=== PATIENT | female | born 2000 | race American Indian/Alaskan Native ===

== ENCOUNTER 2021-05-30 07:28 | Outpatient (CLI) | payer MEDICAID ==
[2021-05-30] MEDS ORDERED: LACTATED RINGERS 500 ML IV ONE (07:48)
[2021-05-30] MEDS ORDERED: TERBUTALINE 1 MG/1 ML INJ SUB-Q SCH (08:00)
[2021-05-30] MEDS ORDERED: LACTATED RINGERS 1,000 ML IV SCH (08:00)
[2021-05-30 08:51] LABS: Amphetamine Screen,Urine Negative; Basophils # (Auto) 0.1 K/mm3 (0.0-0.1); Basophils % (Auto) 0.4 % (0.0-1.8); Benzodiazepines Screen,Urine Negative; Cannabinoid Screen,Urine Negative; Eosinophils # (Auto) 0.4 K/mm3 (0.0-0.4); Hematocrit 29.5 % (30.3-42.9); Hemoglobin 10.2 gm/dl (10.1-14.3); Lymphocytes # (Auto) 2.4 K/mm3 (1.2-5.4); Lymphocytes % (Auto) 18.8 % (13.4-35.0); Mean Corpuscular HGB Conc 35 % (30-34); Mean Corpuscular Volume 89 fl (79-97); Methadone Screen,Urine Negative; Monocytes # (Auto) 0.8 K/mm3 (0.0-0.8); Monocytes % (Auto) 6.4 % (0.0-7.3); Opiate Screen,Urine Negative; Platelet Count 486 K/mm3 (140-440); Red Blood Count 3.31 M/mm3 (3.65-5.03); Red Cell Distribution Width 15.1 % (13.2-15.2)
[2021-05-30 08:54] LABS: Bilirubin,Urine NEG (Negative); Blood,Urine NEG (Negative); Color,Urine Yellow (Yellow); Mucus,Urine FEW /HPF; Sperm,Urine FEW /HPF (NP)
[2021-05-30 09:12] LABS: Cocaine Screen,Urine PRESUMPTIVE POSITIVE
[2021-05-30 09:57] VITALS: BP 98/58
--- NOTE | 2021-05-30 14:05 | Ultrasound Report ---
ULTRASOUND OBSTETRIC LIMITED ULTRASOUND BIOPHYSICAL PROFILE INDICATION / CLINICAL INFORMATION: labor. Clinical Gestational Age (GA): 37.0 weeks.days COMPARISON: None available. FINDINGS: BREATHING MOVEMENT = 2 GROSS BODY MOVEMENT = 2 TONE = 2 QUALITATIVE AMNIOTIC FLUID VOLUME = 2 TOTAL BIOPHYSICAL SCORE = 8/8 HEART RATE (beats per minute): 135 AMNIOTIC FLUID INDEX (cm) = 21.1 (normal = 7-24 cm) PRESENTATION: Cephalic. ADDITIONAL FINDINGS: The placenta is located anteriorly, is grade 1 and is free of the os. The BPD is 8.2 cm (33 weeks 0 days), head circumference 31.0 cm (34 weeks 2 days), abdominal circumference 29.3 cm (33 weeks 2 days) in the femur length is 6.8 cm (35 weeks 0 days). The HC/AC ratio is 1.1. The ce phalic index is 83.1 (minimally elevated). The estimated weight is 2284+/-338 g. IMPRESSION: 1. Biophysical Score = 8/8 2. The sonographic dates are 33 weeks 6 days. Signer Name: Zeb Gonzalez MD Signed: 05/30/2021 2:01 PM Workstation Name: [id number]
== END 2021-05-30 10:14 | disposition home or self-care (01) ==
LOC: TRG 07:28 → APU 07:30 → TRG 10:14
PROVIDERS: ATTEND Obstetrics & Gynecology
DX: O47.03 False labor before 37 completed weeks of gestation, third trimester (principal); Z3A.34 34 weeks gestation of pregnancy
CPT/HCPCS: 36415; 76816; 76819; 80307; 81001; 85025; 86592; 86593; 86706; 86762; 86850; 86900; 86901; 87086; J7120

== ENCOUNTER 2022-05-05 09:02 | Emergency (ER) | payer MEDICAID ==
[2022-05-05 09:08] VITALS: BP 130/80
[2022-05-05] MEDS ORDERED: SODIUM CHLORIDE 0.9% 1000 ML 1,000 ML IV ONE (11:58)
[2022-05-05] MEDS ORDERED: CLINDAMYCIN 600 MG/50 mL 600 MG/50 ML BAG IV ONE (11:58)
[2022-05-05] MEDS ORDERED: methylPREDNISolone Sod Suc 500 MG in SODIUM CHLORIDE 0.9% 100 ML IV ONE (11:58)
[2022-05-05] MEDS ORDERED: IBUPROFEN 800 MG TAB PO ONE (11:58)
== END 2022-05-05 12:00 | disposition left against medical advice (07) ==
LOC: ED 09:02
DX: K08.89 Other specified disorders of teeth and supporting structures (principal); Z53.21 Procedure and treatment not carried out due to patient leaving prior to being seen by health care provider

== ENCOUNTER 2022-05-05 15:12 | Emergency (ER) | payer MEDICAID ==
[2022-05-05 15:27] VITALS: BP 116/77
--- NOTE | 2022-05-05 16:41 | Emergency Department Report ---
ED ENT HPI - General Chief complaint: Dental/Oral Stated complaint: TOOTH ACHE Time Seen by Provider: 05/05/22 16:37 Source: patient Mode of arrival: Ambulatory Limitations: No Limitations - History of Present Illness Initial comments: Patient is a 22-year-old female that comes to the emergency room with dental pain. It is right upper dental pain. She states that she was seen at [place] in the past and told to see an oral surgeon. She comes here thinking she can see an oral surgeon. There is no Ludewig's. No abscess. No trismus. Patient taking p.o. She is nontoxic on exam. MD complaint: tooth pain -: Gradual, month(s) Severity: mild Severity scale (0 -10): 3 Quality: aching Consistency: constant Improves with: none Worsens with: none Context- Dental: history of dental caries Associated Symptoms: gum swelling, toothache - Related Data Previous Rx's Medication Instructions Recorded Last Taken Type Amoxicillin [Trimox CAP] 500 mg PO BID #20 capsule 05/05/22 Unknown Rx Allergies Allergy/AdvReac Type Severity Reaction Status Date / Time chocolate flavor Allergy Rash Verified 05/30/21 07:42 egg Allergy Rash Verified 05/30/21 07:42 peanut Allergy Rash Verified 05/30/21 07:42 ED Dental HPI - General Chief complaint: Dental/Oral Stated complaint: TOOTH ACHE Time Seen by Provider: 05/05/22 16:37 Source: patient Mode of arrival: Ambulatory Limitations: No Limitations - Related Data Previous Rx's Medication Instructions Recorded Last Taken Type Amoxicillin [Trimox CAP] 500 mg PO BID #20 capsule 05/05/22 Unknown Rx Allergies Allergy/AdvReac Type Severity Reaction Status Date / Time chocolate flavor Allergy Rash Verified 05/30/21 07:42 egg Allergy Rash Verified 05/30/21 07:42 peanut Allergy Rash Verified 05/30/21 07:42 ED Review of Systems ROS: Stated complaint: TOOTH ACHE Other details as noted in HPI Comment: All other systems reviewed and negative ED Past Medical Hx - Past Medical History Previous Medical History?: No Hx Hypertension: No Hx Diabetes: No Hx Deep Vein Thrombosis: No Hx Renal Disease: No Hx Sickle Cell Disease: No Hx Seizures: No Hx HIV: No - Surgical History Past Surgical History?: No - Family History Family history: no significant - Social History Smoking Status: Never Smoker Substance Use Type: Alcohol - Medications Home Medications: Home Medications Medication Instructions Recorded Confirmed Last Taken Type Amoxicillin [Trimox CAP] 500 mg PO BID #20 capsule 05/05/22 Unknown Rx ED Physical Exam - General Limitations: No Limitations General appearance: alert, in no apparent distress - Head Head exam: Present: atraumatic, normocephalic - Eye Eye exam: Present: normal appearance - ENT ENT exam: Present: mucous membranes moist - Expanded ENT Exam Expanded Mouth exam: Absent: drooling, trismus, muffled voice, tongue normal, tongue elevation, laceration Teeth exam: Present: dental caries 1 - Other (CARIES) - Neck Neck exam: Present: normal inspection - Respiratory Respiratory exam: Present: normal lung sounds bilaterally. Absent: respiratory distress - Cardiovascular Cardiovascular Exam: Present: regular rate, normal rhythm. Absent: systolic murmur, diastolic murmur, rubs, gallop - GI/Abdominal GI/Abdominal exam: Present: soft, normal bowel sounds - Extremities Exam Extremities exam: Present: normal inspection - Back Exam Back exam: Present: normal inspection - Neurological Exam Neurological exam: Present: alert, oriented X3 - Psychiatric Psychiatric exam: Present: normal affect, normal mood - Skin Skin exam: Present: warm, dry, intact, normal color. Absent: rash ED Course Vital Signs 05/05/22 15:24 Temperature 97.6 F Pulse Rate 68 Respiratory 18 Rate Blood Pressure 116/77 O2 Sat by Pulse 98 Oximetry ED Medical Decision Making - Medical Decision Making Vital Signs 05/05/22 15:24 Temperature 97.6 F Pulse Rate 68 Respiratory 18 Rate Blood Pressure 116/77 O2 Sat by Pulse 98 Oximetry No abscess, Ludewig's, trismus. Patient taking p.o. No fever or chills. Patient educated on appropriate management of dental caries. Patient being discharged home with discharge plan of care including diet, activity medications and follow-up. She verbalizes understanding - Differential Diagnosis Dental pain Critical care attestation.: If time is entered above; I have spent that time in minutes in the direct care of this critically ill patient, excluding procedure time. ED Disposition Clinical Impression: Pain, dental Disposition: HOME / SELF CARE / HOMELESS Is pt being admited?: No Does the pt Need Aspirin: No Condition: Stable Instructions: Acute Pain, Adult Additional Instructions: TAKE MED UNTIL GONE MOTRIN OR TYLENOL FOR PAIN FOLLOW UP WITH DENTIST BRENTON Prescriptions: Amoxicillin [Trimox CAP] 500 mg PO BID #20 capsule Referrals: [facility] [Outside] - 3-5 Days [facility] [Outside] - 3-5 Days Time of Disposition: 16:39
== END 2022-05-05 18:00 | disposition home or self-care (01) ==
LOC: ED 15:12
DX: K08.89 Other specified disorders of teeth and supporting structures (principal); F10.20 Alcohol dependence, uncomplicated; Z91.018 Allergy to other foods; Z91.010 Allergy to peanuts
CPT/HCPCS: 99282